=== PATIENT | female | born 1955 | race American Indian/Alaskan Native ===

== ENCOUNTER 2017-04-20 23:40 | Observation (INO) | payer BC ==
[2017-04-20] MEDS ORDERED: Sodium Chloride 0.9% 1,000 ML IV ONE (23:52)
[2017-04-21] MEDS ORDERED: Promethazine/Cod 6.25mg-10mg/5ml Syr UD PO STA (00:03)
[2017-04-21 00:09] LABS: BASO # 0.1 K/uL (0.0-0.2); BASO % 1.2 % (0.0-2.0); EOS # 1.5 K/uL (0.0-0.7); EOS % 16.4 % (0.0-4.0); LYMPH # 3.4 K/uL (1.0-4.3); LYMPH % 36.5 % (20.0-40.0); MEAN CELL VOLUME 86.8 fL (81.0-99.0); MEAN CORPUSCULAR HEMOGLOBIN 29.8 pg (27.0-31.0); MEAN CORPUSCULAR HGB CONC 34.3 g/dL (33.0-37.0); MEAN PLATELET VOLUME 9.5 fL (7.2-11.7); MONO % 10.4 % (0.0-10.0); NEUT # 3.3 K/uL (1.8-7.0); NEUT % 35.5 % (50.0-75.0); RBC 3.68 Mil/uL (3.80-5.20); RED CELL DISTRIBUTION WIDTH 14.1 % (11.5-14.5); WHITE BLOOD COUNT 9.3 K/uL (4.8-10.8)
[2017-04-21] MEDS ORDERED: Promethazine/Cod 6.25mg-10mg/5ml Syr UD ONE (00:11)
[2017-04-21 00:22] LABS: BLOOD UREA NITROGEN 27 mg/dL (7-17); CALCIUM 9.4 mg/dl (8.6-10.4); GFR AFRICAN-AMERICAN 31; GFR NON-AFRICAN AMERICAN 25
[2017-04-21 00:35] LABS: SQUAMOUS EPITHIAL 2 /hpf (0-5); URINE BACTERIA FEW (<OCC); URINE BILIRUBIN NEGATIVE (NEGATIVE); URINE BLOOD 1+ (NEGATIVE); URINE CLARITY Hazy (Clear); URINE COLOR Straw (YELLOW); URINE GLUCOSE (UA) NORMAL (Normal); URINE LEUKOCYTE ESTERASE TRACE Leu/uL (Negative); URINE PROTEIN NEGATIVE (NEGATIVE); URINE UROBILINOGEN NORMAL mg/dL (0.2-1.0)
[2017-04-21] MEDS ORDERED: Albuterol-Ipratrop 3 mg / 0.5 (3 ml) UD IH STA (01:11)
--- NOTE | 2017-04-21 01:12 | C.PDOC ---
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 Pt reports, " I was told by my coworker, had cough spell when suddenly stopped breathing, my eyes rolled back and I was shaking". Pt reports, recollect cough episode and then when was surrounded by people. At present time, pt c/o mild headache. Pt reports, has cough for past 2 months, productive with clear sputum, intermittent wheezing. Pt was seen by PMD 2 weeks ago when received Rx: antibiotic, cough syrup, inh, completed few days ago, without significant improvement Otherwise, pt denies head injury, denies severe headache, dizziness, visual changes, focal deficits, neck pain, CP, SOB, palpitation, diaphoresis, abd. pain, V/D, back pain. At the time of evaluation, AAO#3, not in any apparent distress. Time Seen by Provider: 04/20/17 23:46 Chief Complaint (Nursing): Cough, Cold, Congestion History Per: Patient Onset/Duration Of Symptoms: Sudden Onset Past Medical History Reviewed: Historical Data, Nursing Documentation, Vital Signs Vital Signs: Last Vital Signs Temp 97.7 F 04/21/17 02:32 Pulse 70 04/21/17 02:32 Resp 20 04/21/17 02:32 BP 137/71 04/21/17 02:32 Pulse Ox 98 04/21/17 02:32 - Medical History PMH: HTN Surgical History: No Surg Hx Family History: States: Unknown Family Hx - Social History Hx Tobacco Use: No Hx Alcohol Use: Yes Hx Substance Use: No - Immunization History Hx Tetanus Toxoid Vaccination: No Hx Influenza Vaccination: No Hx Pneumococcal Vaccination: No Review Of Systems Except As Marked, All Systems Reviewed And Found Negative. Constitutional: Negative for: Fever, Chills, Malaise ENT: Positive for: Nose Congestion Cardiovascular: Negative for: Chest Pain, Palpitations, Orthopnea, Edema, Light Headedness Respiratory: Positive for: Cough, Sputum, Wheezing. Negative for: Shortness of Breath, SOB with Excertion, Pleuritic Pain Gastrointestinal: Negative for: Nausea, Vomiting, Abdominal Pain, Diarrhea, Melena, Hematochezia, Hematemesis Genitourinary: Negative for: Dysuria, Frequency, Incontinence Musculoskeletal: Negative for: Neck Pain, Back Pain Skin: Negative for: Bruising Neurological: Positive for: Altered Mental Status. Negative for: Weakness, Numbness Physical Exam - Physical Exam Appears: Well, Non-toxic, No Acute Distress Skin: Normal Color, Warm, Dry, No Rash Head: Atraumatic, Normacephalic Eye(s): bilateral: PERRL Ear(s): Bilateral: Normal Nose: No Flaring, Discharge (scant clear B/L with congestion) Oral Mucosa: Moist, No Drooling, No Trismus Tongue: No Bite Lips: Normal Appearing Throat: No Erythema, No Drooling Neck: Trachea Midline, No Midline Cervical Tenderness, No Paracervical Tenderness, No Step Off Deformity, Supple Cardiovascular: Rhythm Regular, No Murmur, No JVD Respiratory: No Decreased Breath Sounds, No Accessory Muscle Use, No Rales, No Rhonchi, No Stridor, Wheezing (diffuse B/l exp wheezing) Gastrointestinal/Abdominal: Soft, No Tenderness, No Distention, No Guarding, No Rebound Back: No CVA Tenderness Extremity: Normal ROM, No Pedal Edema, No Deformity Neurological/Psych: Oriented x3, Normal Speech, Normal Cognition, Normal Motor, Normal Sensation, Normal Reflexes ED Course And Treatment - Laboratory Results Result Diagrams: 04/21/17 00:06 04/21/17 00:06 Lab Interpretation: Abnormal ECG: Interpreted By Me, Viewed By Me ECG Rhythm: Sinus Rhythm ECG Interpretation: Normal Interpretation Of ECG: SR@69/min, NAD, T wave inversion in III, no acute ST-T changes. O2 Sat by Pulse Oximetry: 98 Pulse Ox Interpretation: Normal - Radiology CXR: Interpreted by Me, Viewed By Me CXR Interpretation: Yes: No Acute Disease Progress Note: On re-eval, pt is resting comfortably, not in any apparent distress. PulsEOx 98% ra. Neck: Supple, (-) JVD, (-) carotid bruits B/L. ENT : no acute findings. Lungs: CTA B/L, BS equal B/L. CVS: (+)S1S2, reg, (-) murmur. ABd: benign, (-) guaridng, (-) rebound. Neurologicaly intact. EKG, CXR review and appewars normal study. Blood work: CBC- normal, CMP- high BUN/ Cr. Pt has clinical findings c/w SYncope r/o vasovagal vs aspiration, COPD exacerbation, ARF. Case dsicussed with Med-on-call and admission arranged to tele. Disposition - Disposition Disposition: HOSPITALIZED Disposition Time: 01:12 Condition: STABLE - Clinical Impression Clinical Impression: Syncope, COPD (chronic obstructive pulmonary disease), Renal insufficiency
[2017-04-21] MEDS ORDERED: Albuterol-Ipratrop 3 mg / 0.5 (3 ml) UD ONE (01:47)
[2017-04-21] MEDS ORDERED: cefTRIAXone IV 1 gm in Dextros 50 ML IVPB ONE (02:16)
[2017-04-21] MEDS: Albuterol-Ipratrop 3 mg / 0.5 (3 ml) UD INH SCH ×2 (07:32→13:33)
--- NOTE | 2017-04-21 08:19 | RAD ---
HISTORY: SOB COMPARISON: No prior. TECHNIQUE: Chest PA and lateral FINDINGS: LUNGS: No active pulmonary disease. PLEURA: No significant pleural effusion identified. No pneumothorax apparent. CARDIOVASCULAR: Atherosclerotic aortic calcifications. Cardiomediastinal silhouette within normal limits. OSSEOUS STRUCTURES: Degenerative changes. VISUALIZED UPPER ABDOMEN: Normal. OTHER FINDINGS: None. IMPRESSION: No active disease.
[2017-04-21] MEDS: GlipiZIDE 2.5 mg Tab PO SCH ×2 (09:00→17:37)
[2017-04-21] MEDS ORDERED: Verapamil 180 mg ER Tab PO SCH (10:00)
--- NOTE | 2017-04-21 10:51 | CP.PCM.HP ---
History of Present Illness - History of Present Illness History of Present Illness: pt has cough at work then passed out Present on Admission - Present on Admission Any Indicators Present on Admission: No Review of Systems - Review of Systems Systems not reviewed;Unavailable: Acuity of Condition - Constitutional Constitutional: As Per HPI - EENT Eyes: As Per HPI Ears: As Per HPI Nose/Mouth/Throat: As Per HPI - Breasts Breasts: As Per HPI - Cardiovascular Cardiovascular: As Per HPI - Respiratory Respiratory: As Per HPI - Gastrointestinal Gastrointestinal: As Per HPI - Genitourinary Genitourinary: As Per HPI - Reproductive: Female Reproductive:Female: As Per HPI - Menstruation Menstruation: As Per HPI - Musculoskeletal Musculoskeletal: As Per HPI - Integumentary Integumentary: As Per HPI - Neurological Neurological: As Per HPI - Psychiatric Psychiatric: As Per HPI - Endocrine Endocrine: Other (dm) Additional Comments: dm - Hematologic/Lymphatic Hematologic: As Per HPI Past Patient History - Past Medical History & Family History Past Medical History?: Yes - Past Social History Smoking Status: Never Smoked - CARDIAC Hx Hypertension: Yes - ENDOCRINE/METABOLIC Hx Diabetes Mellitus Type 2: Yes - MUSCULOSKELETAL/RHEUMATOLOGICAL Hx Falls: No - PSYCHIATRIC Hx Substance Use: No - SURGICAL HISTORY Hx Orthopedic Surgery: Yes (BACK,HERNIATED DISCS) Meds Home Medications: Home Medication List Medication Instructions Recorded Confirmed Type Lasix 20 mg PO DAILY 30 Days 04/21/17 Rx Allergies/Adverse Reactions: Allergies Allergy/AdvReac Type Severity Reaction Status Date / Time shellfish derived Allergy Verified 04/20/17 23:49 Physical Exam - Constitutional Appears: Well - Head Exam Head Exam: ATRAUMATIC - Eye Exam Eye Exam: Normal appearance Pupil Exam: PERRL - ENT Exam ENT Exam: Mucous Membranes Moist - Neck Exam Neck exam: Positive for: Full Rom - Respiratory Exam Respiratory Exam: NORMAL BREATHING PATTERN - Cardiovascular Exam Cardiovascular Exam: REGULAR RHYTHM - GI/Abdominal Exam GI & Abdominal Exam: Normal Bowel Sounds, Soft - Rectal Exam Rectal Exam: NORMAL INSPECTION - Exam Exam: NORMAL INSPECTION - Extremities Exam Extremities exam: Positive for: normal inspection - Back Exam Back exam: NORMAL INSPECTION - Neurological Exam Neurological exam: Alert, CN II-XII Intact, Normal Gait, Oriented x3 - Psychiatric Exam Psychiatric exam: Normal Affect, Normal Mood - Skin Skin Exam: Normal Color Results - Vital Signs Recent Vital Signs: Last Vital Signs Temp 97.9 F 04/21/17 08:47 Pulse 77 04/21/17 08:47 Resp 20 04/21/17 08:47 BP 156/78 H 04/21/17 08:47 Pulse Ox 98 04/21/17 03:50 - Labs Result Diagrams: 04/21/17 12:06 04/21/17 12:06 Labs: Laboratory Results - last 24 hr 04/21/17 04/21/17 04/21/17 00:06 00:06 00:17 WBC 9.3 RBC 3.68 L Hgb 11.0 Hct 32.0 L MCV 86.8 D MCH 29.8 MCHC 34.3 RDW 14.1 Plt Count 300 MPV 9.5 Neut % (Auto) 35.5 L Lymph % (Auto) 36.5 [place] % (Auto) 10.4 H Eos % (Auto) 16.4 H Baso % (Auto) 1.2 Neut # (Auto) 3.3 Lymph # (Auto) 3.4 [place] # (Auto) 1.0 H Eos # (Auto) 1.5 H Baso # (Auto) 0.1 Sodium 143 Potassium 4.0 Chloride 99 Carbon Dioxide 32 H Anion Gap 16 BUN 27 H Creatinine 2.0 H Est GFR ( Amer) 31 Est GFR (Non-Af Amer) 25 POC Glucose (mg/dL) Random Glucose 129 H Calcium 9.4 Troponin I < 0.0120 Urine Color Straw Urine Clarity Hazy Urine pH 7.0 Ur Specific [place] 1.006 Urine Protein Negative Urine Glucose (UA) Normal Urine Ketones Negative Urine Blood 1+ H Urine Nitrate Negative Urine Bilirubin Negative Urine Urobilinogen Normal Ur Leukocyte Esterase Trace Urine WBC (Auto) 4 Urine RBC (Auto) 5 H Ur Squamous Epith Cells 2 Urine Bacteria Few H Influenza Typ A,B (EIA) 04/21/17 04/21/17 01:27 06:33 WBC RBC Hgb Hct MCV MCH MCHC RDW Plt Count MPV Neut % (Auto) Lymph % (Auto) [place] % (Auto) Eos % (Auto) Baso % (Auto) Neut # (Auto) Lymph # (Auto) [place] # (Auto) Eos # (Auto) Baso # (Auto) Sodium Potassium Chloride Carbon Dioxide Anion Gap BUN Creatinine Est GFR ( Amer) Est GFR (Non-Af Amer) POC Glucose (mg/dL) 236 H Random Glucose Calcium Troponin I Urine Color Urine Clarity Urine pH Ur Specific [place] Urine Protein Urine Glucose (UA) Urine Ketones Urine Blood Urine Nitrate Urine Bilirubin Urine Urobilinogen Ur Leukocyte Esterase Urine WBC (Auto) Urine RBC (Auto) Ur Squamous Epith Cells Urine Bacteria Influenza Typ A,B (EIA) Negative for flu a/b Assessment & Plan - Assessment and Plan (Free Text) Assessment: syncope vasvagal uti dm
--- NOTE | 2017-04-21 11:02 | CP.PCM.PN ---
Subjective - Date & Time of Evaluation Date of Evaluation: 04/21/17 Time of Evaluation: 10:56 - Subjective Subjective: PATIENT WAS ADMITTED FOR SYNCOPE AND COPD AND ELLIS AAOX3 DENIES CHEST PAIN, SOB/ NO SIGN OF DISTRESS NOTED Objective - Vital Signs/Intake and Output Vital Signs (last 24 hours): Temp Pulse Resp BP Pulse Ox 97.9 F 77 20 156/78 H 98 04/21/17 08:47 04/21/17 08:47 04/21/17 08:47 04/21/17 08:47 04/21/17 03:50 - Medications Medications: Current Medications Albuterol/Ipratropium (Duoneb 3 Mg/0.5 Mg (3 Ml) Ud) 3 ml INH RQ6 [facility] Aspirin (Aspirin) 81 mg PO DAILY [facility] Carvedilol (Coreg) 6.25 mg PO BID [facility] Last Admin: 04/21/17 10:50 Dose: 6.25 mg Glipizide (Glucotrol) 2.5 mg PO ACBD [facility] Heparin Sodium (Porcine) (Heparin) 5,000 units SC Q12 [facility] Ciprofloxacin (Cipro 400mg/200ml Dsw) 400 mg in 200 mls @ 133 mls/hr IVPB Q12H [facility] Rosuvastatin Calcium (Crestor) 10 mg PO HS [facility] Verapamil HCl (Calan Sr Tab) 180 mg PO DAILY [facility] - Labs Labs: 04/21/17 00:06 04/21/17 00:06 Assessment and Plan - Assessment and Plan (Free Text) Assessment: PATIENT SEEN AND EXAMINED AT THE BEDSIDE LING SOUND CLEAR BOWEL SOUND POSITIVE ALL QUADRANT CR IS SLIGHT ELEVATED/ PO LASIX WAS DECREASE TO 20 MG AN F/U WITH DR Mike IVAN PATIENT DISCUSS WITH DR LORA WHO AGREE FOLLOW UP WITH DR LORA IN HER OFFICE 1-2 WEEK --CALL FOR APPOINTMENT CONTINUE ALL YOUR HOME MEDICATION DIRECTED NEW PRESCRIPTION GIVEN LASIX 20 MG PO DAILY ACTIVITY TOLERATED CALL DR LORA OR GO TOT EMERGENCY ROOM IF SYMPTOMS RETURN OR WORSENING DISCUSS WITH PATIENT WHO AGREE AND VERBALIZED UNDERSTANDING
[2017-04-21 12:22] LABS: BASO % 0.4 % (0.0-2.0); EOS % 0.3 % (0.0-4.0); HEMOGLOBIN 11.1 g/dL (11.0-16.0); LYMPH # 2.1 K/uL (1.0-4.3); LYMPH % 17.3 % (20.0-40.0); MEAN CELL VOLUME 86.7 fL (81.0-99.0); MEAN CORPUSCULAR HEMOGLOBIN 29.2 pg (27.0-31.0); MEAN CORPUSCULAR HGB CONC 33.7 g/dL (33.0-37.0); MONO # 0.2 K/uL (0.0-0.8); MONO % 1.6 % (0.0-10.0); NEUT # 9.6 K/uL (1.8-7.0); NEUT % 80.4 % (50.0-75.0); RBC 3.8 Mil/uL (3.80-5.20); RED CELL DISTRIBUTION WIDTH 14.2 % (11.5-14.5)
[2017-04-21] MEDS ORDERED: Ciprofloxacin 400mg/200ml D5W 400 MG/200 ML BAG IVPB SCH (12:30)
[2017-04-21 12:46] LABS: ALB/GLOB RATIO 0.9 (1.0-2.1); ALBUMIN 4.2 g/dL (3.5-5.0); CALCIUM 9.4 mg/dl (8.6-10.4)
--- NOTE | 2017-04-21 15:30 | CP.PCM.CON ---
History of Present Illness - History of Present Illness History of Present Illness: Consult for ELLIS HPI: 62 yo F w/ pmh of htn that presented w/ syncopal episode. According to her she was having a coughing fit, and than had loc. Unclear how long per her. Per what she describes there was tongue biting involved and ? shaking. Unclear if seizure activity of not. She has a history of hypertension x 30 years or os perviously poorly controlled but now well controlled. NO hx of NSAID use. ros: a full detailed ros is negative except as in my hpi pmH: htn, hyperlipidemia famhx: mom was on dialysis sochx: no active smoking etoh or ivdu pe: vss gen: nad sclera: anicteric op: clear neck: supple cv: +s1+s2 lungs: cta abd soft ext: no edema neuro: a+ox3 psych: nml affect skin no rash labs and imaging reviewed imp: arf/ ckd 3/ hypertensive kidney disease / syncope plan: B/l not totally clear but she states recently told her cr had doubled so suspect at about baseline suspect underlying hypertensive kidney disease UA reviewed w/ hematuria. PT being discharged today, will plan on renal US as outpt ok to resume arb as outpt ? seizure activity defer to primary ok from my standpoint for d/c and follow up. Past Patient History - Past Medical History & Family History Past Medical History?: Yes - Past Social History Smoking Status: Never Smoked - CARDIAC Hx Hypertension: Yes - ENDOCRINE/METABOLIC Hx Diabetes Mellitus Type 2: Yes - MUSCULOSKELETAL/RHEUMATOLOGICAL Hx Falls: No - PSYCHIATRIC Hx Substance Use: No - SURGICAL HISTORY Hx Orthopedic Surgery: Yes (BACK,HERNIATED DISCS) Meds Home Medications: Home Medication List Medication Instructions Recorded Confirmed Type Lasix 20 mg PO DAILY 30 Days 04/21/17 Rx Allergies/Adverse Reactions: Allergies Allergy/AdvReac Type Severity Reaction Status Date / Time shellfish derived Allergy Verified 04/20/17 23:49 - Medications Medications: Current Medications Albuterol/Ipratropium (Duoneb 3 Mg/0.5 Mg (3 Ml) Ud) 3 ml INH RQ6 [facility] Last Admin: 04/21/17 13:33 Dose: 3 ml Aspirin (Ecotrin) 81 mg PO DAILY [facility] Last Admin: 04/21/17 12:54 Dose: 81 mg Carvedilol (Coreg) 6.25 mg PO BID [facility] Last Admin: 04/21/17 10:50 Dose: 6.25 mg Glipizide (Glucotrol) 2.5 mg PO ACBD [facility] Last Admin: 04/21/17 09:00 Dose: 2.5 mg Heparin Sodium (Porcine) (Heparin) 5,000 units SC Q12 [facility] Last Admin: 04/21/17 11:00 Dose: 5,000 units Ciprofloxacin (Cipro 400mg/200ml Dsw) 400 mg in 200 mls @ 133 mls/hr IVPB Q12H [facility] Last Admin: 04/21/17 14:00 Dose: 133 mls/hr Rosuvastatin Calcium (Crestor) 10 mg PO HS [facility] Verapamil HCl (Calan Sr Tab) 180 mg PO DAILY [facility] Last Admin: 04/21/17 14:28 Dose: Not Given Results - Vital Signs Recent Vital Signs: Last Vital Signs Temp 97.9 F 04/21/17 08:47 Pulse 77 04/21/17 08:47 Resp 20 04/21/17 08:47 BP 156/78 H 04/21/17 08:47 Pulse Ox 98 04/21/17 03:50 - Labs Result Diagrams: 04/21/17 12:06 04/21/17 12:06 Labs: Laboratory Results - last 24 hr 04/21/17 04/21/17 04/21/17 00:06 00:06 00:17 WBC 9.3 RBC 3.68 L Hgb 11.0 Hct 32.0 L MCV 86.8 D MCH 29.8 MCHC 34.3 RDW 14.1 Plt Count 300 MPV 9.5 Neut % (Auto) 35.5 L Lymph % (Auto) 36.5 [place] % (Auto) 10.4 H Eos % (Auto) 16.4 H Baso % (Auto) 1.2 Neut # (Auto) 3.3 Lymph # (Auto) 3.4 [place] # (Auto) 1.0 H Eos # (Auto) 1.5 H Baso # (Auto) 0.1 Sodium 143 Potassium 4.0 Chloride 99 Carbon Dioxide 32 H Anion Gap 16 BUN 27 H Creatinine 2.0 H Est GFR ( Amer) 31 Est GFR (Non-Af Amer) 25 POC Glucose (mg/dL) Random Glucose 129 H Calcium 9.4 Total Bilirubin AST ALT Alkaline Phosphatase Troponin I < 0.0120 Total Protein Albumin Globulin Albumin/Globulin Ratio Urine Color Straw Urine Clarity Hazy Urine pH 7.0 Ur Specific [place] 1.006 Urine Protein Negative Urine Glucose (UA) Normal Urine Ketones Negative Urine Blood 1+ H Urine Nitrate Negative Urine Bilirubin Negative Urine Urobilinogen Normal Ur Leukocyte Esterase Trace Urine WBC (Auto) 4 Urine RBC (Auto) 5 H Ur Squamous Epith Cells 2 Urine Bacteria Few H Influenza Typ A,B (EIA) 04/21/17 04/21/17 04/21/17 01:27 06:33 12:06 WBC 12.0 H RBC 3.80 Hgb 11.1 Hct 33.0 L MCV 86.7 MCH 29.2 MCHC 33.7 RDW 14.2 Plt Count 310 MPV 10.0 Neut % (Auto) 80.4 H Lymph % (Auto) 17.3 L [place] % (Auto) 1.6 Eos % (Auto) 0.3 Baso % (Auto) 0.4 Neut # (Auto) 9.6 H Lymph # (Auto) 2.1 [place] # (Auto) 0.2 Eos # (Auto) 0.0 Baso # (Auto) 0.0 Sodium Potassium Chloride Carbon Dioxide Anion Gap BUN Creatinine Est GFR ( Amer) Est GFR (Non-Af Amer) POC Glucose (mg/dL) 236 H Random Glucose Calcium Total Bilirubin AST ALT Alkaline Phosphatase Troponin I Total Protein Albumin Globulin Albumin/Globulin Ratio Urine Color Urine Clarity Urine pH Ur Specific [place] Urine Protein Urine Glucose (UA) Urine Ketones Urine Blood Urine Nitrate Urine Bilirubin Urine Urobilinogen Ur Leukocyte Esterase Urine WBC (Auto) Urine RBC (Auto) Ur Squamous Epith Cells Urine Bacteria Influenza Typ A,B (EIA) Negative for flu a/b 04/21/17 12:06 WBC RBC Hgb Hct MCV MCH MCHC RDW Plt Count MPV Neut % (Auto) Lymph % (Auto) [place] % (Auto) Eos % (Auto) Baso % (Auto) Neut # (Auto) Lymph # (Auto) [place] # (Auto) Eos # (Auto) Baso # (Auto) Sodium 141 Potassium 3.9 Chloride 99 Carbon Dioxide 27 Anion Gap 19 BUN 28 H Creatinine 1.8 H Est GFR ( Amer) 35 Est GFR (Non-Af Amer) 29 POC Glucose (mg/dL) Random Glucose 267 H Calcium 9.4 Total Bilirubin 0.5 AST 42 H ALT 32 Alkaline Phosphatase 148 H Troponin I Total Protein 8.8 H Albumin 4.2 Globulin 4.6 H Albumin/Globulin Ratio 0.9 L Urine Color Urine Clarity Urine pH Ur Specific [place] Urine Protein Urine Glucose (UA) Urine Ketones Urine Blood Urine Nitrate Urine Bilirubin Urine Urobilinogen Ur Leukocyte Esterase Urine WBC (Auto) Urine RBC (Auto) Ur Squamous Epith Cells Urine Bacteria Influenza Typ A,B (EIA)
[2017-04-21] MEDS ORDERED: Pneumococcal 23-Valent Vaccine IM ONE (16:26)
[2017-04-21] MEDS ORDERED: Influenza Vaccine 60 mcg/0.5 mL SYR (4YR UP) IM ONE (16:26)
[2017-04-21 17:06] VITALS: BP 113/70; PULSE 72; RESP 18; TEMP 98.1; O2SAT 97
--- NOTE | 2017-04-26 18:40 | CARD ---
APPROVED REPORT EKG Measurement Heart [id number] <Conclusion> Normal sinus rhythm Normal ECG
== END 2017-04-21 20:30 | disposition home or self-care (01) ==
LOC: C.ER 23:40 → INTOOBSV 04-21 01:10 → C.6T 04-21 01:10
PROVIDERS: ADMIT Internal Medicine; ATTEND Internal Medicine
DX: R55 Syncope and collapse (principal); N17.9 Acute kidney failure, unspecified; J44.9 Chronic obstructive pulmonary disease, unspecified; N39.0 Urinary tract infection, site not specified; I12.9 Hypertensive chronic kidney disease with stage 1 through stage 4 chronic kidney disease, or unspecified chronic kidney disease; E11.22 Type 2 diabetes mellitus with diabetic chronic kidney disease; N18.3 Chronic kidney disease, stage 3 (moderate); E78.5 Hyperlipidemia, unspecified
CPT/HCPCS: 71046; 80048; 80053; 81001; 82948; 84484; 85025; 87040; 87804; 93005; 94640; 96361; 96365; 96375; 99285; G0378; J0696; J0744; J1644; J2930; J7040